=== PATIENT | male | born 1975 | race Caucasian/White ===

== ENCOUNTER 2020-08-02 20:54 | Emergency (ER) | payer SELFPAY ==
[~2020-08-02] VITALS: Ht 182.9 cm; Wt 115.7 kg
[2020-08-02] MEDS ORDERED: LIDOCAINE HCL 1% LOCAL INJ 20 ML VIAL ONE (22:43)
[2020-08-02] MEDS ORDERED: SODIUM BICARBONATE 8.4% SYRING 50 ML ONE (23:01)
== END 2020-08-02 23:34 | disposition home or self-care (01) ==
LOC: ER 21:28
DX: S01.312A Laceration without foreign body of left ear, initial encounter (principal); Y04.8XXA Assault by other bodily force, initial encounter
CPT/HCPCS: 12011; 99283; J2001